=== PATIENT | male | born 1950 | race Two or more races ===

== ENCOUNTER 2017-12-12 19:00 | Emergency (ER) | payer OTHER ==
[~2017-12-12] VITALS: Ht 185.4 cm; Wt 81.6 kg
[2017-12-12] MEDS: NITROGLYCERIN 0.4 MG/TAB BOTTLE SL ONE ×2 (19:36→19:59)
[2017-12-12] MEDS ORDERED: ONDANSETRON 4 MG/2 ML VIAL ONE (19:40)
[2017-12-12] MEDS ORDERED: GLUCAGON,HUMAN RECOMBINANT 1 MG VIAL ONE (19:40)
--- NOTE | 2017-12-12 19:40 | NUR ---
PT IN BED. SPOUSE AT BEDSIDE. BREATH SOUNDS ARE REGULAR AND UNLABORED. LUNGS ARE CLEAR. PT A&OX4. PT ABLE TO MAKE NEEDS KNOW. PT VOMITING IN BED. ACCORDING TO SPOUSE, PT HAS A HX OF THROAT CA. PT HAS HAD OTHER INCIDENTS IN THE PAST W/ ESPHAGEAL PAIN AND DIFFICULTY SWALLOWING. WILL CONTINUE TO MONITOR AND OFFER COMFORT MEASURES
[2017-12-12] MEDS ORDERED: NITROGLYCERIN 0.4 MG/TAB BOTTLE SL ONE (19:41)
[2017-12-12] MEDS ORDERED: ONDANSETRON IV *ER 4 MG/2 ML VIAL IV ONE (19:45)
[2017-12-12] MEDS ORDERED: GLUCAGON,HUMAN RECOMBINANT 1 MG VIAL IVP ONE (19:45)
[2017-12-12] MEDS ORDERED: LORAZEPAM 2 MG/1 ML VIAL ONE (19:46)
[2017-12-12] MEDS ORDERED: LORAZEPAM 2 MG/1 ML VIAL IV ONE (20:00)
--- NOTE | 2017-12-12 20:56 | NUR ---
PT IN BED. SPOUSE AT BEDSIDE. PT STATES FEELING BETTER AFTER MEDICATION. CURRENTLY PERFORMING FLUID CHALLENGE. PT RESPONDING WELL. WILL CONTINUE MONITORING PROGRESS.
--- NOTE | 2017-12-12 21:09 | NUR ---
Patient discharged to home in stable conditon. Written and verbal after care instructions given. Patient verbalizes understanding of instructions. Patient able to ambulate unassisted with steady gait. Patient left with all his belongings.
[2017-12-12 21:21] VITALS: BP 120/91
== END 2017-12-12 21:09 | disposition home or self-care (01) ==
LOC: ER 19:00
DX: K22.2 Esophageal obstruction (principal); K21.9 Gastro-esophageal reflux disease without esophagitis; Z91.041 Radiographic dye allergy status
CPT/HCPCS: 96374; 96375; 99284; A4663; J1610; J2060; J2405